=== PATIENT | male | born 1985 | race Caucasian/White ===

== ENCOUNTER 2017-04-10 14:04 | Emergency (ER) | payer SELFPAY ==
[2017-04-10] MEDS ORDERED: OXYCODONE-ACETAMINOPHEN 5-325 MG TABLET PO ONE (15:09)
--- NOTE | 2017-04-10 15:50 | RADIOLOGY REPORT (SQ) ---
EXAM DESCRIPTION: CLAVICLE RIGHT COMPLETED DATE/TIME: 04/10/2017 3:39 pm REASON FOR STUDY: fall with right shoulder pain COMPARISON: None. NUMBER OF VIEWS: Two views. TECHNIQUE: Frontal and angled images were acquired of the right clavicle. LIMITATIONS: None. FINDINGS: MINERALIZATION: Normal. BONES: No acute fracture or dislocation. No worrisome bone lesions. SOFT TISSUES: No obvious swelling or foreign body. OTHER: No other significant finding. IMPRESSION: NEGATIVE STUDY OF THE RIGHT CLAVICLE. NO RADIOGRAPHIC EVIDENCE OF ACUTE INJURY. TECHNICAL DOCUMENTATION: JOB ID: [id number] [employer]- All Rights Reserved
--- NOTE | 2017-04-10 15:51 | RADIOLOGY REPORT (SQ) ---
EXAM DESCRIPTION: SHOULDER RIGHT 2 OR MORE VIEWS COMPLETED DATE/TIME: 04/10/2017 3:39 pm REASON FOR STUDY: fall with right shoulder pain COMPARISON: None. NUMBER OF VIEWS: Three views. TECHNIQUE: Internal rotation, external rotation, and Y view images acquired of the right shoulder. LIMITATIONS: None. FINDINGS: MINERALIZATION: Normal. BONES: No acute fracture or dislocation. No worrisome bone lesions. JOINTS: No dislocation. VISUALIZED LUNGS AND RIBS: No pneumothorax. No rib fracture. SOFT TISSUES: No radiopaque foreign body. OTHER: No other significant finding. IMPRESSION: NEGATIVE STUDY OF THE RIGHT SHOULDER. NO RADIOGRAPHIC EVIDENCE OF ACUTE INJURY. TECHNICAL DOCUMENTATION: JOB ID: [id number] [employer]- All Rights Reserved
--- NOTE | 2017-04-10 16:54 | ER Document Report ---
HPI - HPI Onset: Yesterday - fall down stairs Onset/Duration: Sudden Quality of pain: Achy, Sharp, Stabbing, Other - right shoulder over clavicle Pain Level: 5 Exacerbated by: Movement Relieved by: Remaining still Similar symptoms previously: No Recently seen / treated by doctor: No - CARDIOVASCULAR Cardiovascular: DENIES: Chest pain - DERM Skin Color: Normal Past Medical History - Social History Smoking Status: Current Every Day Smoker Chew tobacco use (# tins/day): No Frequency of alcohol use: None Drug Abuse: None Family History: Reviewed & Not Pertinent Patient has suicidal ideation: No Patient has homicidal ideation: No Renal/ Medical History: Denies: Hx Peritoneal Dialysis Vertical Provider Document - CONSTITUTIONAL Agree With Documented VS: Yes Exam Limitations: No Limitations General Appearance: WD/WN, No Apparent Distress - INFECTION CONTROL TRAVEL OUTSIDE OF THE [place] IN LAST 30 DAYS: No - RESPIRATORY O2 Sat by Pulse Oximetry: 99 - CARDIOVASCULAR Pulses: Normal: Brachial, Radial Notes: cap refill less than 2 seconds - MUSCULOSKELETAL/EXTREMETIES Musculoskeletal/Extremeties: Tender - over clavicle, No Edema. negative: Eccymosis Notes: no dislocation or deformity noted. pain with AROM, guarded for PROM. clinical informatics physician strength equal - NEURO Motor/Sensory: No Motor Deficit, No Sensory Deficit - DERM Integumentary: Warm, Dry, No Rash. negative: Laceration Course - Re-evaluation Re-evalutation: 04/10/17 19:40 Patient is a 31-year-old male who is hemodynamic stable, no acute distress afebrile. No evidence of fracture dislocation on x-ray. Patient with improved range of motion after medication. Patient placed in sling. patient to be discharged home with strict return precautions. Exercise plan given. Patient to take Motrin, use ice, heat for pain management and to follow-up with primary care as needed. - Vital Signs Vital signs: Temp Pulse Resp BP Pulse Ox 98.2 F 102 H 20 120/92 H 99 04/10/17 14:10 04/10/17 14:10 04/10/17 14:10 04/10/17 14:10 04/10/17 14:10 - Diagnostic Test Radiology reviewed: Image reviewed, Reports reviewed Discharge - Discharge Clinical Impression: Shoulder pain Qualifiers: Chronicity: acute Laterality: right Qualified Code(s): M25.511 - Pain in right shoulder Condition: Good Disposition: HOME, SELF-CARE Instructions: Shoulder Injury ([facility]), Exercise Program for the Shoulder ([facility]), Temporary Sling ([facility]) Additional Instructions: Please use the sling as instructed Follow up with your primary care as scheduled Prescriptions: Ibuprofen [Motrin 800 mg Tablet] 800 mg PO Q8H PRN #30 tab PRN Reason: Forms: Parent Work Note Referrals: TRAVIS GLORIA MD [ACTIVE STAFF] - Follow up as needed
[2017-04-10 17:04] VITALS: BP 121/90
== END 2017-04-10 17:04 | disposition home or self-care (01) ==
LOC: ER 14:04
DX: M25.511 Pain in right shoulder (principal); W10.9XXA Fall (on) (from) unspecified stairs and steps, initial encounter; Y92.009 Unspecified place in unspecified non-institutional (private) residence as the place of occurrence of the external cause; F17.200 Nicotine dependence, unspecified, uncomplicated
CPT/HCPCS: 99283